=== PATIENT | female | born 1980 | race Caucasian/White ===

== ENCOUNTER 2017-04-28 07:53 | Day surgery (SDC) | payer BC, OTHER ==
[2017-04-28] MEDS ORDERED: ONDANSETRON HCL INJ/PF 4 MG/2 ML SDV IV ONE ×2 (08:08→13:19)
[2017-04-28 08:23] LABS: ABSOLUTE EOSINOPHILS # (AUTO) 0.1 10^3/uL (0.0-0.6); ABSOLUTE LYMPHOCYTES (AUTO) 2.6 10^3/uL (0.5-4.7); ABSOLUTE MONOCYTES (AUTO) 0.5 10^3/uL (0.1-1.4); BASOPHILS % (AUTO) 0.3 % (0-2); EOSINOPHILS % (AUTO) 1.2 % (0-6); HEMATOCRIT 43.4 % (36.0-47.0); HEMOGLOBIN 14.7 g/dL (12.0-15.5); HGB HCT DIFFERENCE 0.7; LYMPHOCYTES % (AUTO) 31.7 % (13-45); MEAN CORPUSCULAR HEMOGLOBIN 30.4 pg (27.0-33.4); MEAN CORPUSCULAR HGB CONC 33.9 g/dL (32.0-36.0); MEAN CORPUSCULAR VOLUME 90 fl (80-97); MONOCYTES % (AUTO) 6.2 % (3-13); RED BLOOD COUNT 4.84 10^6/uL (3.72-5.28); RED CELL DISTRIBUTION WIDTH 13.5 % (11.5-14.0); SEGMENTED NEUTROPHILS % (AUTO) 60.6 % (42-78); WHITE BLOOD COUNT 8.3 10^3/uL (4.0-10.5)
[2017-04-28] MEDS ORDERED: HYDROMORPHONE HCL INJ/PF 2 MG/ML AMPULE IV ONE ×3 (08:36→13:19)
[2017-04-28 08:42] LABS: ALANINE AMINOTRANSFERASE 43 U/L (9-52); ALBUMIN 4.2 g/dL (3.5-5.0); ALKALINE PHOSPHATASE 125 U/L (38-126); ANION GAP 13 (5-19); ASPARTATE AMINO TRANSFERASE 31 U/L (14-36); BILIRUBIN,DIRECT 0.3 mg/dL (0.0-0.4); BILIRUBIN,TOTAL 0.7 mg/dL (0.2-1.3); BLOOD UREA NITROGEN 17 mg/dL (7-20); CALCIUM 9.3 mg/dL (8.4-10.2); CARBON DIOXIDE 24 mmol/L (22-30); CHLORIDE 105 mmol/L (98-107); CREATININE RESULT 0.77 mg/dL (0.52-1.25); GLUCOSE 127 mg/dL (75-110); LIPASE 105.3 U/L (23-300); SODIUM 141.9 mmol/L (137-145); TOTAL PROTEIN 7.6 g/dL (6.3-8.2)
--- NOTE | 2017-04-28 08:44 | ER Document Report ---
ED General - General Chief Complaint: Abdominal Pain Stated Complaint: VOMITING/ABDOMINAL PAIN Time Seen by Provider: 04/28/17 08:01 Mode of Arrival: Ambulatory Information source: Patient Notes: 36-year-old female history of hysterectomy presents with complaints of right upper quadrant abdominal pain that started 2 hours prior to arrival. pt admits to nausea vomiting x3. denies any fevers or chills. TRAVEL OUTSIDE OF THE [place] IN LAST 30 DAYS: No - HPI Onset: Just prior to arrival Onset/Duration: Sudden Quality of pain: Sharp Severity: Moderate Pain Level: 3 Associated symptoms: Nausea, Vomiting Exacerbated by: Denies Relieved by: Denies Similar symptoms previously: Yes Recently seen / treated by doctor: No - Related Data Allergies/Adverse Reactions: codeine [Codeine] Allergy (Verified 04/28/17 07:54) oxycodone HCl [From Percocet] Allergy (Verified 04/28/17 07:54) Past Medical History - Social History Smoking Status: Never Smoker Cigarette use (# per day): No Chew tobacco use (# tins/day): No Smoking Education Provided: No Family History: Reviewed & Not Pertinent Patient has suicidal ideation: No Patient has homicidal ideation: No Pulmonary Medical History: Reports: Hx Asthma Renal/ Medical History: Reports: Hx Ovarian Cysts. Denies: Hx Peritoneal Dialysis Past Surgical History: Reports: Hx Genitourinary Surgery - bladder, Hx Gynecologic Surgery - partial hystere, Hx Hysterectomy - Immunizations Immunizations up to date: No Hx Diphtheria, Pertussis, Tetanus Vaccination: No Review of Systems - Review of Systems Notes: REVIEW OF SYSTEMS: CONSTITUTIONAL : Denies fever, chills, or sweats. Denies recent illness. EENT: Denies eye, ear, throat, or mouth pain or symptoms. Denies nasal or sinus congestion or discharge. Denies throat, tongue, or mouth swelling or difficulty swallowing. CARDIOVASCULAR: Denies chest pain. Denies palpitations or racing or irregular heart beat. Denies ankle edema. RESPIRATORY: Denies cough, cold, or chest congestion. Denies shortness of breath, difficulty breathing, or wheezing. GASTROINTESTINAL: Denies abdominal pain or distention. Denies nausea, vomiting , or diarrhea. Denies blood in vomitus, stools, or per rectum. Denies black, tarry stools. Denies constipation. GENITOURINARY: Admits to abdominal pain FEMALE GENITOURINARY: Denies vaginal bleeding, heavy or abnormal periods, irregular periods. Denies vaginal discharge or odor. MUSCULOSKELETAL: Denies back or neck pain or stiffness. Denies joint pain or swelling. SKIN: Denies rash, lesions or sores. HEMATOLOGIC : Denies easy bruising or bleeding. LYMPHATIC: Denies swollen, enlarged glands. NEUROLOGICAL: Denies confusion or altered mental status. Denies passing out or loss of consciousness. Denies dizziness or lightheadedness. Denies headache. Denies weakness or paralysis or loss of use of either side. Denies problems with gait or speech. Denies sensory loss, numbness, or tingling. Denies seizures. PHYSICAL EXAMINATION: GENERAL: Well-appearing, well-nourished and in mild distress due to pain HEAD: Atraumatic, normocephalic. EYES: Pupils equal round and reactive to light, extraocular movements intact, conjunctiva are normal. ENT: Nares patent, oropharynx clear without exudates. Moist mucous membranes. NECK: Normal range of motion, supple without lymphadenopathy LUNGS: Breath sounds clear to auscultation bilaterally and equal. No wheezes rales or rhonchi. HEART: Regular rate and rhythm without murmurs ABDOMEN: Soft tender in the RUQ with guarding Female : deferred Musculoskeletal: Normal range of motion, no pitting or edema. No cyanosis. NEUROLOGICAL: Cranial nerves grossly intact. Normal speech, normal gait. Normal sensory, motor exams PSYCH: Normal mood, normal affect. SKIN: Warm, Dry, normal turgor, no rashes or lesions noted. PSYCHIATRIC: Denies anxiety or stress. Denies depression, suicidal ideation, or homicidal ideation. ALL OTHER SYSTEMS REVIEWED AND NEGATIVE. Dictation was performed using [employer] voice recognition software Physical Exam - Vital signs Vitals: Temp Pulse Resp BP Pulse Ox 97.6 F 66 20 141/105 H 100 04/28/17 07:54 04/28/17 07:54 04/28/17 07:54 04/28/17 07:54 04/28/17 07:54 Course - Re-evaluation Re-evalutation: 04/28/17 08:43 Lab work imaging is pending at this time, patient appears to be in pain been given immediate pain control 04/28/17 12:[address] roya rodriguez called 04/28/17 14:[address] Do again, he would like ot admit patient for angel luis saldivar , pt happy with this plan will treat for uti with iv antibiotics - Vital Signs Vital signs: Temp Pulse Resp BP Pulse Ox 97.6 F 66 20 126/86 H 100 04/28/17 07:54 04/28/17 07:54 04/28/17 07:54 04/28/17 09:18 04/28/17 07:54 - Laboratory Result Diagrams: 04/28/17 08:12 04/28/17 08:12 Laboratory results interpreted by me: 04/28/17 04/28/17 08:12 10:39 Glucose 127 H Urine Ketones 80 H Urine Nitrite POSITIVE H - Diagnostic Test Radiology reviewed: Image reviewed, Reports reviewed - cholelithiasis Discharge - Discharge Clinical Impression: Urinary tract infection Qualifiers: Urinary tract infection type: site unspecified Hematuria presence: without hematuria Qualified Code(s): N39.0 - Urinary tract infection, site not specified Cholelithiasis Qualifiers: Cholelithiasis location: gallbladder Cholecystitis presence: without cholecystitis Biliary obstruction: without biliary obstruction Qualified Code(s) : K80.20 - Calculus of gallbladder without cholecystitis without obstruction Condition: Stable Disposition: ADMITTED INPATIENT Admitting Provider: Surgicalist Unit Admitted: Surgical Floor Referrals: HELENA HANCOCK MD [Primary Care Provider] - Follow up as needed
[2017-04-28] MEDS ORDERED: KETOROLAC TROMETHAMINE INJ/PF 30 MG/1 ML SDV IV ONE (08:59)
[2017-04-28] MEDS ORDERED: MORPHINE SULFATE 10 MG/ML INJ IV ONE (08:59)
[2017-04-28] MEDS ORDERED: SUCCINYLCHOLINE CHLORIDE INJ 200 MG/10 ML VIAL ONE (09:50)
[2017-04-28] MEDS ORDERED: GLYCOPYRROLATE INJ 0.4 MG/2 ML VIAL ONE (09:50)
[2017-04-28] MEDS ORDERED: DEXAMETHASONE SOD PHOSPHATE INJ 4 MG/1 ML VIAL ONE (09:50)
[2017-04-28] MEDS ORDERED: LIDOCAINE 2% INJ-PF (20 MG/ML) 10 ML AMPUL ONE (09:50)
[2017-04-28] MEDS ORDERED: VECURONIUM BROMIDE INJ 10 MG VIAL IV ONE (09:50)
[2017-04-28] MEDS ORDERED: METOCLOPRAMIDE HCL INJ/PF 10 MG/2 ML SDV ONE (09:50)
[2017-04-28] MEDS ORDERED: ONDANSETRON HCL INJ/PF 4 MG/2 ML SDV ONE (09:50)
[2017-04-28] MEDS ORDERED: NEOSTIGMINE METHYLSULFATE 10 MG/10 ML VIAL ONE (09:50)
--- NOTE | 2017-04-28 10:03 | RADIOLOGY REPORT (SQ) ---
EXAM DESCRIPTION: CT ABD/PELVIS WITH IV ONLY COMPLETED DATE/TIME: 04/28/2017 9:46 am REASON FOR STUDY: hx gastric sleeve, lower abd pain COMPARISON: None. TECHNIQUE: CT scan of the abdomen and pelvis performed using helical scanning technique with dynamic intravenous contrast injection. No oral contrast. Images reviewed with lung, soft tissue, and bone windows. Reconstructed coronal and sagittal MPR images reviewed. Delayed images for evaluation of the urinary system also acquired. All images stored on PACS. All CT scanners at this facility use dose modulation, iterative reconstruction, and/or weight based d osing when appropriate to reduce radiation dose to as low as reasonably achievable (ALARA). [facility]: Dose Right [facility]: CareDose [facility]: Dose Right [facility]: Teradose 4D [facility]: XOS Digital CONTRAST TYPE AND DOSE: contrast/concentration: Isovue 370.00 mg/ml; Total Contrast Delivered: 91.0 ml; Total Saline Delivered: 47.7 ml RENAL FUNCTION: BUN 17 creatinine 0.77. RADIATION DOSE: Up-to-date CT equipment and radiation dose reduction techniques were employed. CTDIv ol: 11.2 - 14.8 mGy. DLP: 1383 mGy-cm.mGy. LIMITATIONS: None. FINDINGS: LOWER CHEST: No significant findings. No nodules or infiltrates. LIVER: Normal size. No masses or dilated ducts. SPLEEN: Normal size. No focal lesions. PANCREAS: No masses. No significant calcifications. No adjacent inflammation or peripancreatic fluid collections. Pancreatic duct not dilated. GALLBLADDER: No identified stones by CT criteria. No inflammatory changes to suggest cholecystitis. ADRENAL GLANDS: No significant masses or asymmetry. RIGHT KIDNEY AND URETER: No solid masses. No significant calcifications. No hydronephrosis or hyd roureter. LEFT KIDNEY AND URETER: No solid masses. No significant calcifications. No hydronephrosis or hydr oureter. AORTA AND VESSELS: No aneurysm. No dissection. Renal arteries, SMA, celiac without stenosis. RETROPERITONEUM: No retroperitoneal adenopathy, hemorrhage or masses. BOWEL AND PERITONEAL CAVITY: Previous gastric surgery. No masses or inflammatory changes. No free fl uid or peritoneal masses. APPENDIX: Normal. PELVIS: No free fluid. Multiloculated cystic lesion in the right adnexa. Individual cystic componen ts measure 2- 3 cm and overall dimension of the lesion is 4.5 x 5.5 cm. Normal bladder. ABDOMINAL WALL: No masses. No hernias. BONES: No significant or acute findings. OTHER: No other significant finding. IMPRESSION: 1. MULTILOCULATED CYSTIC LESION IN THE RIGHT ADNEXA MOST LIKELY OVARIAN. RECOMMEND FURTHER EVALUATIO N WITH PELVIC ULTRASOUND. 2. NO OTHER SIGNIFICANT OR ACUTE FINDING IN THE ABDOMEN OR PELVIS ON CT SCAN WITH IV CONTRAST. TECHNICAL DOCUMENTATION: JOB ID: [id number] Quality ID # [id number]: Final reports with documentation of one or more dose reduction techniques (e.g., Au tomated exposure control, adjustment of the mA and/or kV according to patient size, use of iterative reconstruction technique) 2010 [employer]- All Rights Reserved
[2017-04-28 11:13] LABS: APPEARANCE,URINE CLEAR; BILIRUBIN,URINE NEGATIVE (NEGATIVE); GLUCOSE, URINE NEGATIVE (NEGATIVE); KETONES,URINE 80 mg/dL (NEGATIVE); LEUKOCYTE ESTERASE,URINE NEGATIVE (NEGATIVE); NITRITE,URINE POSITIVE (NEGATIVE); PROTEIN,URINE NEGATIVE (NEGATIVE); URINE SPECIFIC GRAVITY > 1.060; UROBILINOGEN,URINE NEGATIVE mg/dL (<2.0)
[2017-04-28] MEDS ORDERED: NORMAL SALINE 1000 ML 1,000 ML IV ONE (11:20)
[2017-04-28] MEDS ORDERED: CIPROFLOXACIN HCL 500 MG TABLET PO ONE ×2 (11:20→14:31)
--- NOTE | 2017-04-28 12:19 | RADIOLOGY REPORT (SQ) ---
EXAM DESCRIPTION: U/S ABDOMEN LIMITED W/O DOP COMPLETED DATE/TIME: 04/28/2017 12:01 pm REASON FOR STUDY: RUQ pain COMPARISON: None. TECHNIQUE: Dynamic and static grayscale images acquired of the right upper quadrant and recorded on PACS. Additional selected color Doppler and spectral images recorded. LIMITATIONS: Study limited due to acoustical interference from fat or from air in the bowel. FINDINGS: PANCREAS: Visualized pancreas and duct normal. Parts of pancreas poorly seen secondary to acoustical interference from fat or from air in the bowel. LIVER: No masses. Echotexture normal. LIVER VASCULATURE: Normal directional flow of the main portal vein and hepatic veins. GALLBLADDER: Gallstone(s). No pericholecystic fluid. No wall thickening. ULTRASOUND-DETECTED LOAIZA'S SIGN: Positive. INTRAHEPATIC DUCTS AND COMMON DUCT: CBD and intrahepatic ducts normal caliber. No filling defects. INFERIOR VENA CAVA: Normal flow. AORTA: No aneurysm. RIGHT KIDNEY: Normal size. Normal echogenicity. No solid or suspicious masses. No hydronephrosis. No calcifications. PERITONEAL CAVITY AND RIGHT PLEURAL SPACE: No ascites or effusions. OTHER: No other significant finding. IMPRESSION: 1. GALLSTONES. NO BILIARY DILATION OR SONOGRAPHIC FINDINGS OF ACUTE INFLAMMATION. HOWEVER, THE SONO GRAPHER REPORTS A POSITIVE SONOGRAPHIC LOAIZA SIGN. 2. OTHERWISE UNREMARKABLE RIGHT UPPER QUADRANT ULTRASOUND. PANCREAS PARTIALLY OBSCURED BY GAS. TECHNICAL DOCUMENTATION: JOB ID: [id number] [employer]- All Rights Reserved
[2017-04-28] MEDS ORDERED: CIPROFLOXACIN 200 MG/D5W RTU 100 ML IV ONE (14:06)
[2017-04-28] MEDS ORDERED: BUPIVACAINE HCL 0.25 % INJ/PF (2.5 MG/1 ML) 30 ML VIAL ONE (15:59)
[2017-04-28] MEDS ORDERED: MIDAZOLAM 2 MG/2 ML INJ ONE (16:00)
[2017-04-28] MEDS ORDERED: FENTANYL CITRATE INJ/PF 250 MCG/5 ML AMPULE ONE (16:00)
[2017-04-28] MEDS ORDERED: ACETAMINOPHEN 100 ML IV ONE ×2 (16:01→17:57)
[2017-04-28] MEDS ORDERED: PROPOFOL INJ 200 MG/20 ML VIAL IV ONE (16:01)
--- NOTE | 2017-04-28 16:18 | HISTORY AND PHYSICAL E ---
History and Physical NAME: MONICA LOPEZ : 1980 AGE: 36Y ADMITTED: 04/28/2017 ROOM: ED14 CHIEF COMPLAINT: Abdominal pain. HISTORY OF PRESENT ILLNESS: The patient is a 36-year-old female who ate for pizza for dinner around 7:30 last night. This morning, she woke up around 7:00 a.m. with severe right upper quadrant pain, associated nausea and vomiting. She went to the emergency room where a CAT scan of the abdomen was done which was unremarkable, but a subsequent ultrasound of the gallbladder revealed gallstones, though no pericholecystic fluid but has a [place]'s sign. PAST MEDICAL HISTORY: 1. History of hypothyroidism and takes Synthroid. 2. Had a tubal removal of left ovary. 3. Had laparoscopic sleeve resection early this year and has lost about 45 pounds since. REVIEW OF SYSTEMS: As in HPI. The rest of the systems unremarkable. No diarrhea or constipation. No dysuria. FAMILY HISTORY: Strong for diabetes and heart disease in her father. ALLERGIES: She comments that taking Percocet and codeine makes her nauseated, but no apparent definite allergy to Percocet. No other allergies. SOCIAL HISTORY: Denies smoking, drinking, or drug use. PHYSICAL EXAMINATION: GENERAL: Well-developed, well-nourished, 36-year-old female, alert and oriented, complaining of severe right upper quadrant pain. She has had about 3 doses of Dilaudid since admission. HEENT: Neck is supple. No thyromegaly. LUNGS: Clear. HEART: Regular sinus rhythm. ABDOMEN: Soft. There is marked tenderness in the right upper quadrant. EXTREMITIES: No edema. IMPRESSION: Acute calculous cholecystitis. PLAN: Patient is for laparoscopic cholecystectomy, possible open. DICTATING PHYSICIAN: KEITH HUDDLESTON M.D. [id number] PHY#: [id number] ID: [id number] JOB#: [id number] ACCT: [id number] cc:KEITH HUDDLESTON M.D. >
[2017-04-28] MEDS ORDERED: SCOPOLAMINE HYDROBROMIDE 1.5 MG PATCH.TD72 ONE (16:25)
[2017-04-28] MEDS ORDERED: DIPHENHYDRAMINE HCL 50 MG/ML VIAL IV PRN (16:56)
[2017-04-28] MEDS ORDERED: ONDANSETRON HCL INJ/PF 4 MG/2 ML SDV IV PRN (16:56)
[2017-04-28] MEDS ORDERED: FENTANYL CITRATE INJ/PF 100 MCG/2 ML AMPUL IV PRN ×3 (16:56)
[2017-04-28] MEDS ORDERED: MORPHINE SULFATE 10 MG/ML INJ IV PRN ×2 (16:56→18:04)
[2017-04-28] MEDS ORDERED: PROMETHAZINE HCL INJ 25 MG/1 ML VIAL IV PRN ×2 (16:56)
[2017-04-28] MEDS ORDERED: MEPERIDINE HCL/PF INJ 25 MG/1 ML DISP.SYRIN IV PRN (16:56)
[2017-04-28] MEDS ORDERED: SCOPOLAMINE HYDROBROMIDE 1.5 MG PATCH.TD72 TD ONE (16:57)
[2017-04-28] MEDS ORDERED: NORMAL SALINE 1000 ML 1,000 ML IV PRN (18:05)
[2017-04-28] MEDS ORDERED: OXYCODONE-ACETAMINOPHEN 5-325 MG TABLET PO PRN (18:05)
--- NOTE | 2017-04-28 18:23 | OPERATIVE REPORT E ---
Operative Report NAME: MONICA LOPEZ : 1980 AGE: 36Y DATE OF SURGERY: 04/28/2017 ROOM: ED14 PREOPERATIVE DIAGNOSIS: Acute calculous cholecystitis. POSTOPERATIVE DIAGNOSIS: Acute calculous cholecystitis. OPERATION: Laparoscopic cholecystectomy. SURGEON: KEITH HUDDLESTON M.D. ANESTHESIA: General. INDICATIONS: This is a 36-year-old female who complained of right lower quadrant pain when waking up this morning after a fatty dinner. Ultrasound of the gallbladder revealed stones. She has the worst pain that was experienced according to her on the right upper quadrant. DESCRIPTION OF PROCEDURE: After adequate general anesthesia, the patient was placed in supine position and the abdomen prepped and draped in the usual sterile fashion. Appropriate timeout was done. Next, an infraumbilical elliptical incision was made over a previous scar and carried down to the fascia. The fascia was identified and pulled up with Jonathan clamp on each side and divided between the Jonathan clamps. A Rusty trocar was inserted into the abdominal cavity through the fascial defect. CO2 insufflated up to a pressure of 15 mmHg. Three other trocars were placed, a 12 mm in the subxiphoid and two 5 mm in the left upper quadrant under direct vision. The gallbladder was then identified and noted to be distended and thickened with edema. The fundus was then grasped and the infundibulum also grasped with graspers. Cystic duct was then dissected as well as the cystic artery. Cystic duct was then clipped with hemoclips and divided between the hemoclips. The cystic artery was then clipped with hemoclips and divided with harmonic zaira closed to the gallbladder. The gallbladder was then dissected off the liver bed with the use of the harmonic zaira. There was some edema around the wall indicating acute cholecystitis. The gallbladder was completely removed from the liver bed and brought out in an Endo bag through the umbilical port. Next, the trocar was put back in the umbilicus and the gallbladder bed inspected and no active bleeding noted. This was irrigated with saline solution and no active bleeding noted. Next, all trocar sites were removed and CO2 allowed to come out through the trocar sites. The fascial defect at the umbilical area was then closed with figure-of-8 suture using 0 Vicryl. The xiphoid defect was closed with simple closure of 0 Vicryl. All the skin incisions were then closed with running subcuticular 4-0 Vicryl undyed. Dermabond dressings were used. The patient tolerated the procedure well and went to recovery in satisfactory condition. Needle, instrument and sponge counts were all correct and estimated blood loss about 30 mL. DICTATING PHYSICIAN: KEITH HUDDLESTON M.D. [id number] PHY#: [id number] ID: [id number] JOB#: [id number] ACCT: [id number] cc:KEITH HUDDLESTON M.D. >
[2017-04-28] MEDS ORDERED: HYDROCOD/ACETAMIN 7.5-325 MG/15 ML ORAL SOLN UDCUP PO PRN (18:45)
[2017-04-29] MEDS ORDERED: CIPROFLOXACIN 400 MG/D5W RTU 400 MG/200 ML RTUPB IV SCH (06:00)
[2017-04-29 12:05] VITALS: BP 126/86
--- NOTE | 2017-06-12 15:03 | DISCHARGE SUMMARY E ---
Discharge Summary NAME: MONICA LOPEZ : 1980 AGE: 36Y ADMITTED: 04/28/2017 DISCHARGED: 04/29/2017 PROCEDURE DONE: Laparoscopic cholecystectomy for acute calculus cholecystitis on 04/28/2017. 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 Ultrasound showed gallstones and acute cholecystitis. The patient then underwent laparoscopic cholecystectomy under general anesthesia for acute calculus cholecystitis on 04/28/2017 around 5:00 in the afternoon. Her postop course was uneventful and the patient discharged improved on the evening of 04/28/2017. Patient advised not to do any lifting, more than 10-15 pounds for the next 2 weeks until seen in the surgical clinic around that time. The patient was given a prescription for Percocet p.r.n. for pain. She can have a soft diet, advanced to regular as tolerated. DICTATING PHYSICIAN: KEITH HUDDLESTON M.D. [id number] PHY#: [id number] ID: [id number] JOB#: [id number] ACCT: [id number] cc:KEITH HUDDLESTON M.D. >
== END 2017-04-29 12:57 | disposition home or self-care (01) ==
LOC: ER 07:53 → OROUT 14:49 → EH 14:49 → ER 14:49 → UNDOADMIN 14:49 → EH 19:11 → 5 19:11 → OROUT 04-29 12:57 → UNDODISIN 04-29 12:57
PROVIDERS: ATTEND Surgery
PROC: 0FT44ZZ Resection of Gallbladder, Percutaneous Endoscopic Approach (ICD-10-PCS; principal; 2017-04-28 16:30)
DX: K80.10 Calculus of gallbladder with chronic cholecystitis without obstruction (principal); E03.9 Hypothyroidism, unspecified; Z88.5 Allergy status to narcotic agent; Z79.899 Other long term (current) drug therapy
CPT/HCPCS: 96376; 99285; 96374; 96375; 36415; 83690; 85025; 80053; 81001; 88304 ×2; 76705; 74177; 47562; J2250; J1100; J3010; J3490 ×2; J1885; J2765; J2270; J1170; J0330; J2405; J7030; J2704; J0744; J0131; 790

== ENCOUNTER 2018-11-12 08:39 | Day surgery (SDC) | payer BC, OTHER ==
[~2018-11-12 08:39] MED LIST: BUPIVACAINE HCL 0.5 % INJ/PF 30 ML SDV ONE; CEFAZOLIN SODIUM 2 GM in DEXTROSE 5%-WATER 100 ML IV PRN
[2018-11-12] MEDS ORDERED: SCOPOLAMINE HYDROBROMIDE 1.5 MG PATCH.TD72 ONE (09:51)
[2018-11-12] MEDS ORDERED: RINGERS SOLUTION,LACTATED 1,000 ML IV PRN (09:59)
[2018-11-12] MEDS ORDERED: SCOPOLAMINE HYDROBROMIDE 1.5 MG PATCH.TD72 TD ONE (10:15)
[2018-11-12] MEDS ORDERED: SUCCINYLCHOLINE CHLORIDE INJ 200 MG/10 ML VIAL ONE (10:55)
[2018-11-12] MEDS ORDERED: MIDAZOLAM 2 MG/2 ML INJ ONE (11:50)
[2018-11-12] MEDS ORDERED: ONDANSETRON HCL INJ/PF 4 MG/2 ML SDV ONE (11:50)
[2018-11-12] MEDS ORDERED: EPHEDRINE SULFATE INJ 50 MG/1 ML AMPULE ONE (11:50)
[2018-11-12] MEDS ORDERED: HYDROMORPHONE HCL INJ/PF 2 MG/ML AMPULE ONE (11:50)
[2018-11-12] MEDS ORDERED: FENTANYL CITRATE INJ/PF 250 MCG/5 ML AMPULE ONE (11:50)
[2018-11-12] MEDS ORDERED: PROPOFOL INJ 200 MG/20 ML VIAL IV ONE (11:51)
[2018-11-12] MEDS ORDERED: PROMETHAZINE HCL INJ 25 MG/1 ML VIAL IV PRN ×2 (12:38)
[2018-11-12] MEDS ORDERED: FENTANYL CITRATE INJ/PF 100 MCG/2 ML AMPUL IV PRN ×3 (12:38)
[2018-11-12] MEDS ORDERED: MEPERIDINE HCL/PF INJ 25 MG/1 ML DISP.SYRIN IV PRN (12:38)
[2018-11-12] MEDS ORDERED: DIPHENHYDRAMINE HCL 50 MG/ML VIAL IV PRN (12:38)
[2018-11-12] MEDS: FENTANYL CITRATE INJ/PF 100 MCG/2 ML AMPUL ONE ×2 (14:25→14:35)
[2018-11-12] MEDS ORDERED: HYDROCODONE/ACETAMINOPHEN 5-325 MG TABLET PO ONE (15:20)
[2018-11-12] MEDS ORDERED: HYDROCODONE/ACETAMINOPHEN 5-325 MG TABLET ONE ×2 (15:25→15:30)
[2018-11-12] MEDS ORDERED: ONDANSETRON ODT 4 MG TAB (6 TAB/ER DISP) PO ONE (15:30)
[2018-11-12] MEDS ORDERED: ONDANSETRON HCL INJ/PF 4 MG/2 ML SDV IV PRN (15:39)
[2018-11-12] MEDS ORDERED: ONDANSETRON 4 MG TAB.RAPDIS ONE (15:42)
[2018-11-12] MEDS ORDERED: HYDROCODONE/ACETAMINOPHEN 5-325 MG TABLET PO PRN (15:51)
[2018-11-12] MEDS ORDERED: ONDANSETRON 4 MG TAB.RAPDIS PO PRN (15:59)
--- NOTE | 2018-11-12 16:01 | RADIOLOGY REPORT (SQ) ---
EXAM DESCRIPTION: NO CHG FLUORO; WRIST RIGHT 3 VIEWS COMPLETED DATE/TIME: 11/12/2018 3:43 pm REASON FOR STUDY: RT WRIST FUSION, SCAPHOIDECTOMY COMPARISON: None. FLUOROSCOPY TIME: 0.08 minutes 3 Images saved to PACS LIMITATIONS: None. PROCEDURE: Scaphoidectomy. Fusion. FINDINGS: Images obtained with fluoro show resection of the scaphoid and placement of 2 large staple s in the wrist. IMPRESSION: Scaphoidectomy. Fusion. Refer to operative note for further information. COMMENT: PQRS 6045F: Fluoroscopy time of the procedure is documented in the report. TECHNICAL DOCUMENTATION: JOB ID: [id number] [employer]- All Rights Reserved Reading location - IP/workstation name: [email or web address]
--- NOTE | 2018-11-12 16:01 | RADIOLOGY REPORT (SQ) ---
EXAM DESCRIPTION: NO CHG FLUORO; WRIST RIGHT 3 VIEWS COMPLETED DATE/TIME: 11/12/2018 3:43 pm REASON FOR STUDY: RT WRIST FUSION, SCAPHOIDECTOMY COMPARISON: None. FLUOROSCOPY TIME: 0.08 minutes 3 Images saved to PACS LIMITATIONS: None. PROCEDURE: Scaphoidectomy. Fusion. FINDINGS: Images obtained with fluoro show resection of the scaphoid and placement of 2 large staple s in the wrist. IMPRESSION: Scaphoidectomy. Fusion. Refer to operative note for further information. COMMENT: PQRS 6045F: Fluoroscopy time of the procedure is documented in the report. TECHNICAL DOCUMENTATION: JOB ID: [id number] [employer]- All Rights Reserved Reading location - IP/workstation name: [email or web address]
[2018-11-12 16:40] VITALS: BP 127/69
--- NOTE | 2018-11-12 17:17 | OPERATIVE REPORT E ---
Operative Report NAME: MONICA LOPEZ : 1980 AGE: 38Y DATE OF SURGERY: 11/12/2018 ROOM: PREOPERATIVE DIAGNOSIS: RIGHT WRIST CHRONIC SCAPHOLUNATE LIGAMENT INSTABILITY. POSTOPERATIVE DIAGNOSIS: RIGHT WRIST CHRONIC SCAPHOLUNATE LIGAMENT INSTABILITY. OPERATION: 1. Right scaphoid excision with intercarpal fusion, autogenous bone graft. 2. Posterior interosseous neurectomy (PIN). SURGEON: TATYANA ANDERSON M.D. ANESTHESIA: General. BLOOD LOSS: Minimal. COMPLICATIONS: None. INDICATIONS: The patient is a 38-year-old woman who had previously undergone repair of an acute scapholunate ligament injury several years ago. She had presented with persistent instability and pain in her wrist that was recalcitrant to nonoperative treatment. DESCRIPTION OF PROCEDURE: Following induction of general anesthetic administration of 2 grams of Ancef, the patient was positioned supine on the operating room table. Bony prominences were padded. A tourniquet was placed proximally on the right arm but not inflated. The right upper extremity was sterilely prepped with ChloraPrep and draped in the standard fashion. The arm was exsanguinated and the tourniquet inflated to 100 mm above systolic pressure. A dorsal incision was made, a sharp incision through skin, and blunt dissection through the subcutaneous tissue. Care was taken to identify and protect superficial branching nerves. The third dorsal extensor compartment was opened, the EPL tendon retracted radially. Fourth dorsal extensor compartment opened, extensor tendons retracted ulnarly. Dorsal capsulotomy was performed. There was an abundance of scar tissue from the prior surgery. The scaphoid lunate interval was opened and was not functional. The scaphoid was removed piecemeal with a rongeur. Cartilage and subchondral bone were removed from the lunate, capitate, and hamate. Autogenous bone graft was harvested from Gillian's tubercle. Reduction of the intercarpal bones was performed and secured with Lili wires. Bone graft was impacted into all the interstices. Fixation of the fusion was performed using BME gilbert. Two gilbert were placed in the lunate, one into the capitate, and one into the hamate. Intraoperative image intensification was used which confirmed correct placement of implants and correct position of the carpal bones. Additionally bone graft was impacted dorsally. The capsule was closed [id number] with 2-0 Vicryl. The extensor retinaculum was closed [id number] with 2-0 Vicryl with the extensor pollicis longus tendon left outside the sheath. The subcutaneous tissue was closed with 2-0 Vicryl and the skin reapproximated with 3-0 Vicryl using a subcuticular technique. Steri-Strips were applied. A 0.25% Marcaine was injected for postoperative analgesia. A bulky sterile dressing and volar splint were applied. The patient tolerated the procedure well without complications and was brought to the recovery room in stable condition. DICTATING PHYSICIAN: TATYANA ANDERSON M.D. [id number] PHY#: [id number] ID: [id number] JOB#: [id number] ACCT: [id number] cc:TATYANA ANDERSON M.D. >
== END 2018-11-12 16:40 | disposition home or self-care (01) ==
LOC: OROUT 08:39
PROVIDERS: ATTEND Orthopaedic Surgery
DX: M12.531 Traumatic arthropathy, right wrist (principal); M25.331 Other instability, right wrist; E03.9 Hypothyroidism, unspecified; J45.909 Unspecified asthma, uncomplicated; D64.9 Anemia, unspecified; Z79.899 Other long term (current) drug therapy; Z88.5 Allergy status to narcotic agent
CPT/HCPCS: 73110; 64772; 25825; C1713 ×2; J2250; J3490; J0690; S0119; J3010; J1170; J0330; J2405; J2704; 01830

== ENCOUNTER → 2019-05-06 | Outpatient (CLI) | payer OTHER ==
[2019-05-06 15:39] LABS: ABSOLUTE EOSINOPHILS # (AUTO) 0.1 10^3/uL (0.0-0.6); ABSOLUTE LYMPHOCYTES (AUTO) 2.9 10^3/uL (0.5-4.7); ABSOLUTE MONOCYTES (AUTO) 0.6 10^3/uL (0.1-1.4); ABSOLUTE NEUT (AUTO) 6.7 10^3/uL (1.7-8.2); BASOPHILS % (AUTO) 0.3 % (0-2); EOSINOPHILS % (AUTO) 0.6 % (0-6); HEMATOCRIT 40.8 % (36.0-47.0); HEMOGLOBIN 13.8 g/dL (12.0-15.5); LYMPHOCYTES % (AUTO) 28.5 % (13-45); MEAN CORPUSCULAR VOLUME 91 fl (80-97); MONOCYTES % (AUTO) 5.8 % (3-13); PLATELET COUNT 283 10^3/uL (150-450); RED BLOOD COUNT 4.46 10^6/uL (3.72-5.28); RED CELL DISTRIBUTION WIDTH 13.5 % (11.5-14.0); SEGMENTED NEUTROPHILS % (AUTO) 64.8 % (42-78); TOTAL CELLS COUNTED % (AUTO) 100 %; WHITE BLOOD COUNT 10.3 10^3/uL (4.0-10.5)
[2019-05-06 16:17] LABS: ERYTHROCYTE SEDIMENTATION RATE 27 mm/hr (0-20)
== END ==
LOC: OD 14:41
PROVIDERS: ATTEND Physician Assistant
DX: M25.531 Pain in right wrist (principal)
CPT/HCPCS: 36415; 82306; 85025; 85652; 86140

== ENCOUNTER → 2019-07-01 | Outpatient (CLI) | payer OTHER ==
[2019-07-01 09:36] LABS: ABSOLUTE EOSINOPHILS # (AUTO) 0.1 10^3/uL (0.0-0.6); ABSOLUTE LYMPHOCYTES (AUTO) 2.3 10^3/uL (0.5-4.7); ABSOLUTE MONOCYTES (AUTO) 0.5 10^3/uL (0.1-1.4); ABSOLUTE NEUT (AUTO) 6.1 10^3/uL (1.7-8.2); BASOPHILS % (AUTO) 0.3 % (0-2); EOSINOPHILS % (AUTO) 1.1 % (0-6); HEMATOCRIT 40.6 % (36.0-47.0); LYMPHOCYTES % (AUTO) 24.9 % (13-45); MEAN CORPUSCULAR HEMOGLOBIN 30.8 pg (27.0-33.4); MEAN CORPUSCULAR HGB CONC 34.4 g/dL (32.0-36.0); MEAN CORPUSCULAR VOLUME 90 fl (80-97); MONOCYTES % (AUTO) 5.7 % (3-13); PLATELET COUNT 267 10^3/uL (150-450); RED BLOOD COUNT 4.52 10^6/uL (3.72-5.28); RED CELL DISTRIBUTION WIDTH 12.8 % (11.5-14.0); TOTAL CELLS COUNTED % (AUTO) 100 %; WHITE BLOOD COUNT 9.1 10^3/uL (4.0-10.5)
[2019-07-01 09:52] LABS: ALKALINE PHOSPHATASE 113 U/L (38-126); ANION GAP 7 (5-19); ASPARTATE AMINO TRANSFERASE 38 U/L (14-36); BILIRUBIN,DIRECT 0.2 mg/dL (0.0-0.4); BILIRUBIN,TOTAL 0.5 mg/dL (0.2-1.3); BLOOD UREA NITROGEN 13 mg/dL (7-20); CALCIUM 9.1 mg/dL (8.4-10.2); CARBON DIOXIDE 29 mmol/L (22-30); CHLORIDE 104 mmol/L (98-107); GLUCOSE 90 mg/dL (75-110); TOTAL PROTEIN 7.1 g/dL (6.3-8.2)
== END ==
LOC: LAB 09:20
PROVIDERS: ATTEND Orthopaedic Surgery Hand Surgery
DX: Z11.2 Encounter for screening for other bacterial diseases (principal); I10 Essential (primary) hypertension
CPT/HCPCS: 36415; 80053; 85025; 87070

== ENCOUNTER → 2019-09-30 | Outpatient (CLI) | payer OTHER ==
[2019-09-30 13:16] LABS: ALBUMIN 4.1 g/dL (3.5-5.0); ALKALINE PHOSPHATASE 117 U/L (38-126); ASPARTATE AMINO TRANSFERASE 28 U/L (14-36); BILIRUBIN,DIRECT 0.1 mg/dL (0.0-0.4); BILIRUBIN,TOTAL 0.5 mg/dL (0.2-1.3); TOTAL PROTEIN 7.6 g/dL (6.3-8.2)
== END ==
LOC: OD 12:01
PROVIDERS: ATTEND Internal Medicine Gastroenterology
DX: R10.11 Right upper quadrant pain (principal)
CPT/HCPCS: 36415; 80076